=== PATIENT | male | born 1980 | race Caucasian/White ===

== ENCOUNTER 2022-12-30 09:11 | Emergency (ER) | payer MEDICAID ==
[~2022-12-30] VITALS: Ht 180.3 cm; Wt 60.4 kg
[2022-12-30 09:18] VITALS: BP 130/80
[2022-12-30] MEDS ORDERED: cephalexin 500mg capsule PO ONE (10:15)
[2022-12-30] MEDS ORDERED: sulfamethoxazole/trimethoprim DS (800/160mg) tablet PO ONE (10:15)
[2022-12-30] MEDS ORDERED: SULF1TAB49 PO (10:41)
[2022-12-30] MEDS ORDERED: CEPH500C82 PO (10:41)
== END 2022-12-30 10:55 | disposition home or self-care (01) ==
LOC: ER 09:12
DX: L03.011 Cellulitis of right finger (principal)
CPT/HCPCS: 99283; A6258